=== PATIENT | female | born 2000 | race Caucasian/White ===

== ENCOUNTER 2018-08-04 22:01 | Emergency (ER) | payer OTHER ==
[~2018-08-04] VITALS: Ht 160 cm; Wt 77.6 kg
[2018-08-04] MEDS ORDERED: ONDANSETRON HCL/PF 4 MG/2 ML VIAL ONE (22:41)
[2018-08-04] MEDS: IV NS 0.9% 1,000 ML BAG IV ONE (22:49)
[2018-08-04] MEDS: ONDANSETRON HCL/PF 4 MG/2 ML VIAL IVP ONE (22:49)
[2018-08-04] MEDS ORDERED: DICYCLOMINE HCL INJ 20 MG/2 ML AMPUL IM ONE (22:50)
[2018-08-04] MEDS: DICYCLOMINE HCL INJ 20 MG/2 ML AMPUL IM ONE (22:53)
[2018-08-04 22:59] LABS: APPEARANCE,URINE SL CLOUDY (CLEAR); BILIRUBIN,URINE NEGATIVE (NEGATIVE); BLOOD, URINE 1+ Ery/uL (NEGATIVE); COLOR,URINE YELLOW (YELLOW); KETONES,URINE NEGATIVE (NEGATIVE); LEUKOCYTE ESTERASE ,URINE NEGATIVE (NEGATIVE); NITRITE, URINE NEGATIVE (NEGATIVE); PH,URINE 7.5 (5.0-8.0); PROTEIN,URINE NEGATIVE (NEGATIVE); UGLUCOSE NEGATIVE (NEGATIVE)
--- NOTE | 2018-08-04 23:05 | NUR ---
BILATERAL UPPER ABD CRAMPING W/ +N/V,-D X 1 WEEK. CURRENTLY MENSTRUATING. TAKING MADHAV SELTZER W/ NO RELIEF. PT IS AAOX4. SKIN WNL. NO S/S OF ACUTE DISTRESS NOTED. RR EVEN AND UNLABORED. PT PLACED ON MONITOR AND POX. MD BEDSIDE FOR EVAL. WILL CONTINUE TO MONITOR PT. WARM BLANKETS PROVIDED TO PT
[2018-08-04 23:10] LABS: BASOPHILS % (AUTO) 0.3 % (0.0-2.0); CALCIUM, SERUM 8.8 mg/dL (8.5-10.1); CREATININE 0.8 mg/dL (0.6-1.3); EOSINOPHILS % (AUTO) 3.8 % (0.0-6.0); HEMATOCRIT 40 % (33-45); HEMOGLOBIN 13.1 g/dL (11.5-14.8); LYMPHOCYTES # (AUTO) 2.6 /CMM (0.8-4.8); LYMPHOCYTES % (AUTO) 25.3 % (20.0-44.0); MEAN CORPUSCULAR HGB CONC 33 g/dl (31.0-36.0); MEAN CORPUSCULAR VOLUME 89 fL (82-100); MONOCYTES # (AUTO) 0.8 /CMM (0.1-1.30); MONOCYTES % (AUTO) 8.1 % (2.0-12.0); NEUTROPHILS # (AUTO) 6.3 /CMM (1.8-8.9); NEUTROPHILS % (AUTO) 62.5 % (43.0-81.0); PLATELET COUNT (AUTO) 417 /CMM (150-450); RDW COEFFICIENT OF VARIATION 13.5 (11.5-15.0); RED BLOOD CELL COUNT(AUTO) 4.44 MIL/uL (4.0-5.2); WHITE BLOOD COUNT (AUTO) 10.1 K/uL (4.3-11.0)
[2018-08-04 23:20] LABS: ALBUMIN 3.5 g/dL (3.4-5.0); BILIRUBIN,DIRECT 0.1 mg/dL (0.0-0.2); BILIRUBIN,TOTAL 0.4 mg/dL (0.2-1.0); TOTAL PROTEIN, SERUM 7.4 g/dL (6.4-8.2)
[2018-08-04 23:25] LABS: BACTERIA,URINE None seen /HPF (None Seen); SQUAMOUS EPITHELIAL CELL,UR Few /HPF (None Seen); WBC,URINE 0-2 /HPF (0-3)
--- NOTE | 2018-08-04 23:41 | NUR ---
Patient discharged to home in stable condition. Written and verbal after care instructions given. Patient verbalizes understanding of instruction.IV removed. Catheter intact and site benign. Pressure and 4x4 applied to site. No bleeding noted. PT AMBULATED WITH STEADY GAIT NOTED. NO S/S OF DISTRESS NOTED UPON DISCHARGE
[2018-08-04 23:42] VITALS: BP 118/70
== END 2018-08-04 23:44 | disposition home or self-care (01) ==
LOC: ER 22:13
DX: A08.4 Viral intestinal infection, unspecified (principal); R11.2 Nausea with vomiting, unspecified; R19.7 Diarrhea, unspecified
CPT/HCPCS: 36415; 80048-TC; 80076-TC; 81000-TC; 83690-TC; 85025-TC; A4606; J0500; J2405; J7030; Z7610

== ENCOUNTER 2019-02-22 20:36 | Emergency (ER) | payer OTHER ==
[~2019-02-22] VITALS: Ht 162.6 cm; Wt 78.5 kg
--- NOTE | 2019-02-22 20:44 | NUR ---
BIB SELF FROM HOME. AAOX4. NAD. NO SOB, BREATHING EVEN AND UNLABORED. AMBULATORY. C/O HEADACHE, DIZZYNESS AND STATES "EVERYTHING IS MOVING FAST" AND BLOATING X3 WEEKS. NO N/V REPORTED. AWAITING MD FOR EVAL.
--- NOTE | 2019-02-22 20:44 | NUR ---
Note williams in EDM - 02/22/19 at 2055 by REID BIB SELF FROM HOME. AAOX4. NAD. NO SOB, BREATHING EVEN AND UNLABORED. AMBULATORY. C/O HEADACHE, DIZZYNESS AND STATES "EVERYTHING IS MOVING FAST". AWAITING MD FOR MARCEL.
--- NOTE | 2019-02-22 21:14 | NUR ---
URINE SPECIMEN COLLECTED. SENT TO LAB
--- NOTE | 2019-02-22 21:18 | NUR ---
LAB AT BEDSIDE
[2019-02-22 21:25] LABS: APPEARANCE,URINE Slightly Cloudy (CLEAR); BILIRUBIN,URINE Negative (NEGATIVE); BLOOD, URINE Moderate Ery/uL (NEGATIVE); COLOR,URINE Yellow (YELLOW); KETONES,URINE Trace (NEGATIVE); LEUKOCYTE ESTERASE ,URINE Negative (NEGATIVE); NITRITE, URINE Negative (NEGATIVE); PROTEIN,URINE Negative (NEGATIVE); UGLUCOSE Negative (NEGATIVE); UROBILINOGEN,URINE 0.2 EU/dL (0.2)
[2019-02-22 21:28] LABS: BASOPHILS % (AUTO) 0.6 % (0.0-2.0); EOSINOPHILS % (AUTO) 5.5 % (0.0-6.0); HEMATOCRIT 39 % (33-45); HEMOGLOBIN 13.2 g/dL (11.5-14.8); LYMPHOCYTES # (AUTO) 2.4 /CMM (0.8-4.8); LYMPHOCYTES % (AUTO) 31.2 % (20.0-44.0); MEAN CORPUSCULAR HGB CONC 34 g/dl (31.0-36.0); MEAN CORPUSCULAR VOLUME 90 fL (82-100); MONOCYTES # (AUTO) 0.7 /CMM (0.1-1.30); MONOCYTES % (AUTO) 9.3 % (2.0-12.0); NEUTROPHILS # (AUTO) 4.2 /CMM (1.8-8.9); NEUTROPHILS % (AUTO) 53.4 % (43.0-81.0); PLATELET COUNT (AUTO) 345 /CMM (150-450); RED BLOOD CELL COUNT(AUTO) 4.33 MIL/uL (4.0-5.2); WHITE BLOOD COUNT (AUTO) 7.9 K/uL (4.3-11.0)
[2019-02-22 21:36] LABS: BACTERIA,URINE Moderate /HPF (None Seen); SQUAMOUS EPITHELIAL CELL,UR Moderate /HPF (None Seen)
[2019-02-22 21:37] LABS: CALCIUM, SERUM 8.9 mg/dL (8.5-10.1); CREATININE 0.9 mg/dL (0.6-1.3); POTASSIUM 4.1 mmol/L (3.5-5.1)
[2019-02-22 21:37] LABS: WBC,URINE 0-2 /HPF (0-3)
[2019-02-22 21:51] LABS: ALBUMIN 3.8 g/dL (3.4-5.0); BILIRUBIN,DIRECT 0.1 mg/dL (0.0-0.2); BILIRUBIN,TOTAL 0.3 mg/dL (0.2-1.0); TOTAL PROTEIN, SERUM 7.3 g/dL (6.4-8.2)
--- NOTE | 2019-02-22 22:07 | NUR ---
US AT BEDSIDE
--- NOTE | 2019-02-22 22:08 | NUR ---
PT REFUSED THE TRANS VAGINAL US. DEMARCO, US TECH, IS SPEAKING TO CHANDANA JIMENEZ RE: PT'S REFUSAL.
[2019-02-22 22:25] VITALS: BP 97/66
--- NOTE | 2019-02-22 22:29 | NUR ---
Patient discharged to home in stable condition. Written and verbal after care instructions given. Patient verbalizes understanding of instruction AND RX. PT AMBULATED OUT WITH A STEADY GAIT. VSS. PT'S FRIEND IS DRIVING THE PT HOME.
== END 2019-02-22 22:23 | disposition home or self-care (01) ==
LOC: ER 20:38
DX: R10.30 Lower abdominal pain, unspecified (principal); F41.9 Anxiety disorder, unspecified
CPT/HCPCS: 36415; 76856-TC; 80048-TC; 80076-TC; 81000-TC; 84702-TC; 84703-TC; 85025-TC; 85730-TC; 87086-TC

== ENCOUNTER 2019-03-22 22:39 | Emergency (ER) | payer OTHER ==
[~2019-03-22] VITALS: Ht 160 cm; Wt 77.1 kg
[2019-03-22 22:50] VITALS: BP 101/67
== END 2019-03-23 01:09 | disposition home or self-care (01) ==
LOC: ER 22:45
DX: H61.22 Impacted cerumen, left ear (principal); S00.412A Abrasion of left ear, initial encounter; K12.0 Recurrent oral aphthae; J02.9 Acute pharyngitis, unspecified; X58.XXXA Exposure to other specified factors, initial encounter; Y93.89 Activity, other specified; Y92.89 Other specified places as the place of occurrence of the external cause; Y99.8 Other external cause status
CPT/HCPCS: 84703-TC

== ENCOUNTER 2019-04-20 23:10 | Emergency (ER) | payer OTHER ==
[~2019-04-20] VITALS: Ht 160 cm; Wt 78.0 kg
[2019-04-21 00:23] LABS: BASOPHILS % (AUTO) 0.4 % (0.0-2.0); EOSINOPHILS % (AUTO) 3.7 % (0.0-6.0); HEMATOCRIT 40 % (33-45); HEMOGLOBIN 13.5 g/dL (11.5-14.8); LYMPHOCYTES # (AUTO) 2.6 /CMM (0.8-4.8); LYMPHOCYTES % (AUTO) 29.6 % (20.0-44.0); MEAN CORPUSCULAR HGB CONC 34 g/dl (31.0-36.0); MEAN CORPUSCULAR VOLUME 90 fL (82-100); MONOCYTES # (AUTO) 0.6 /CMM (0.1-1.30); MONOCYTES % (AUTO) 7.1 % (2.0-12.0); NEUTROPHILS # (AUTO) 5.3 /CMM (1.8-8.9); NEUTROPHILS % (AUTO) 59.2 % (43.0-81.0); PLATELET COUNT (AUTO) 321 /CMM (150-450); RED BLOOD CELL COUNT(AUTO) 4.43 MIL/uL (4.0-5.2); WHITE BLOOD COUNT (AUTO) 8.9 K/uL (4.3-11.0)
[2019-04-21 00:32] LABS: CALCIUM, SERUM 8.7 mg/dL (8.5-10.1); CREATININE 0.7 mg/dL (0.6-1.3); POTASSIUM 4.1 mmol/L (3.5-5.1)
[2019-04-21 00:33] LABS: LIPASE 112 U/L (73-393)
[2019-04-21 00:38] LABS: CHOLESTEROL 164 mg/dL (<200); HDL CHOLESTEROL 46 mg/dL (40-60); LDL 101 mg/dL (0-99); TRIGLYCERIDES 131 mg/dL (30-150)
[2019-04-21 00:43] LABS: ALBUMIN 3.6 g/dL (3.4-5.0); BILIRUBIN,TOTAL 0.3 mg/dL (0.2-1.0); TOTAL PROTEIN, SERUM 7.1 g/dL (6.4-8.2)
[2019-04-21 01:05] VITALS: BP 111/68
== END 2019-04-21 01:08 | disposition home or self-care (01) ==
LOC: ER 23:10
DX: R19.7 Diarrhea, unspecified (principal); R11.0 Nausea; N91.1 Secondary amenorrhea; R10.30 Lower abdominal pain, unspecified
CPT/HCPCS: 36415; 80048-TC; 80061-TC; 80076-TC; 83690-TC; 84702-TC; 84703-TC; 85025-TC; 85730-TC

== ENCOUNTER 2019-06-03 04:08 | Emergency (ER) | payer OTHER ==
[~2019-06-03] VITALS: Ht 160 cm; Wt 78.0 kg
--- NOTE | 2019-06-03 06:05 | NUR ---
presented to the ER for c/o abd pain and nausea x 10 days. pt was placed on a monitor . vss . will cont to monitor ,
[2019-06-03] MEDS ORDERED: ACETAMINOPHEN 325 MG TABLET ONE (06:25)
[2019-06-03] MEDS ORDERED: ONDANSETRON 4 MG TAB.RAPDIS ONE (06:26)
[2019-06-03] MEDS ORDERED: ONDANSETRON 4 MG TAB.RAPDIS PO ONE (06:30)
[2019-06-03] MEDS ORDERED: ACETAMINOPHEN 325 MG TABLET PO ONE (06:30)
[2019-06-03 07:02] LABS: APPEARANCE,URINE SL CLOUDY (CLEAR); BILIRUBIN,URINE NEGATIVE (NEGATIVE); BLOOD, URINE 2+ Ery/uL (NEGATIVE); COLOR,URINE DARK YELLO (YELLOW); KETONES,URINE NEGATIVE (NEGATIVE); LEUKOCYTE ESTERASE ,URINE NEGATIVE (NEGATIVE); NITRITE, URINE NEGATIVE (NEGATIVE); PROTEIN,URINE NEGATIVE (NEGATIVE); UGLUCOSE NEGATIVE (NEGATIVE); UROBILINOGEN,URINE 0.2 EU/dL (0.2)
--- NOTE | 2019-06-03 07:26 | NUR ---
PT ASSESSED ON BED, AAOX4, NOT IN RESPIRATORY DISTRESS, V/S STABLE, AWAITING UA RESULT. WILL CONTINUE TO MONITOR.
[2019-06-03 07:28] LABS: BACTERIA,URINE None seen /HPF (None Seen); SQUAMOUS EPITHELIAL CELL,UR Many /HPF (None Seen)
[2019-06-03 07:29] LABS: MUCUS,URINE Few /LPF (None Seen)
--- NOTE | 2019-06-03 07:53 | NUR ---
Patient discharged to home in stable condition. Written and verbal after care instructions given. Patient verbalizes understanding of instruction.
[2019-06-03 07:54] VITALS: BP 108/62
== END 2019-06-03 07:56 | disposition home or self-care (01) ==
LOC: ER 04:14
DX: N39.0 Urinary tract infection, site not specified (principal)
CPT/HCPCS: 81001; 84703; 87086; 99283; Q0162; 81000-TC

== ENCOUNTER → 2021-01-06 | Emergency (ER) | payer OTHER ==
[~2021-01-06] VITALS: Ht 162.6 cm; Wt 85.3 kg
[~2021-01-06] MED LIST: IBUP-1953 PO; IV NS 0.9% 1,000 ML BAG IV ONE; IV NS 0.9% 250 ML BAG IV ONE; METOCLOPRAMIDE HCL 10 MG/2 ML VIAL IV ONE; METOCLOPRAMIDE HCL 10 MG/2 ML VIAL ONE; diphenhydrAMINE HCL 50 MG/ML VIAL IV ONE; diphenhydrAMINE HCL 50 MG/ML VIAL ONE; diphenhydrAMINE HCL ELIX 25 MG/10 ML UDC ONE
--- NOTE | 2021-01-06 17:55 | NUR ---
THE PATIENT IS ALERT AND ORIENTED X4. DENIES PAIN. IN ROOM AIR AND DENEIS SOB. RESPIRATION REGULAR AND UNLABORED. C/O BLACKWOOD WITH METALLIC TASTE & SMELL X 1 WK. COVID + 10/19/20. THE PATIENT PROVIDED WITHA BLANKET FOR COMOFORT. WILL CONTINUE TO MONITOR.
[2021-01-06 18:31] LABS: BASOPHILS % (AUTO) 0.4 % (0.0-2.0); EOSINOPHILS % (AUTO) 2.1 % (0.0-6.0); HEMATOCRIT 43 % (33-45); HEMOGLOBIN 14.5 g/dL (11.5-14.8); LYMPHOCYTES # (AUTO) 2.3 /CMM (0.8-4.8); LYMPHOCYTES % (AUTO) 27.2 % (20.0-44.0); MEAN CORPUSCULAR HGB CONC 34 g/dl (31.0-36.0); MEAN CORPUSCULAR VOLUME 91 fL (82-100); MONOCYTES # (AUTO) 0.7 /CMM (0.1-1.30); MONOCYTES % (AUTO) 8.1 % (2.0-12.0); NEUTROPHILS # (AUTO) 5.2 /CMM (1.8-8.9); NEUTROPHILS % (AUTO) 62.2 % (43.0-81.0); PLATELET COUNT (AUTO) 422 /CMM (150-450); RED BLOOD CELL COUNT(AUTO) 4.76 MIL/uL (4.0-5.2); WHITE BLOOD COUNT (AUTO) 8.4 K/uL (4.3-11.0)
[2021-01-06 18:40] LABS: CALCIUM, SERUM 9.1 mg/dL (8.5-10.1); CREATININE 0.8 mg/dL (0.6-1.3); POTASSIUM 3.9 mmol/L (3.5-5.1)
[2021-01-06 18:46] LABS: BILIRUBIN,DIRECT 0.1 mg/dL (0.0-0.2); BILIRUBIN,TOTAL 0.2 mg/dL (0.2-1.0); TOTAL PROTEIN, SERUM 7.7 g/dL (6.4-8.2)
--- NOTE | 2021-01-06 19:08 | NUR ---
URINE COLLECTED AND SENT IT TO THE LAB.
[2021-01-06 19:31] LABS: BILIRUBIN,URINE NEGATIVE (NEGATIVE); COLOR,URINE YELLOW (YELLOW); LEUKOCYTE ESTERASE ,URINE TRACE (NEGATIVE); NITRITE, URINE NEGATIVE (NEGATIVE); PH,URINE 5.5 (5.0-8.0); PROTEIN,URINE NEGATIVE (NEGATIVE); UGLUCOSE NEGATIVE (NEGATIVE); UROBILINOGEN,URINE 0.2 EU/dL (0.2)
[2021-01-06 19:45] LABS: BACTERIA,URINE 1+ /HPF (None Seen)
[2021-01-06 20:23] VITALS: BP 112/72
--- NOTE | 2021-01-06 20:24 | NUR ---
Patient discharged to home in stable condition. Written and verbal after care instructions given. Patient verbalizes understanding of instruction. The patient left ER in stable condition.
== END | disposition home or self-care (01) ==
LOC: ER 17:36
DX: G43.109 Migraine with aura, not intractable, without status migrainosus (principal); R43.9 Unspecified disturbances of smell and taste
CPT/HCPCS: 36415; 70450; 80048; 80076; 81001; 84703; 85025; 85730; 96361; 96374; 96375; 99284; J1200; J2765; J7030; J7050; Q0163

== ENCOUNTER 2022-03-08 22:11 | Emergency (ER) | payer OTHER ==
[~2022-03-08] VITALS: Ht 160 cm; Wt 81.6 kg
[~2022-03-08 22:11] MED LIST changes: -IV NS 0.9% 1,000 ML BAG IV ONE; -IV NS 0.9% 250 ML BAG IV ONE; -METOCLOPRAMIDE HCL 10 MG/2 ML VIAL IV ONE; -METOCLOPRAMIDE HCL 10 MG/2 ML VIAL ONE; -diphenhydrAMINE HCL 50 MG/ML VIAL IV ONE; -diphenhydrAMINE HCL 50 MG/ML VIAL ONE; -diphenhydrAMINE HCL ELIX 25 MG/10 ML UDC ONE
--- NOTE | 2022-03-09 00:20 | NUR ---
BIBFAMILY C/O PELVIC PAIN ON AND OFF PAST 3 WEEKS FELT WORSE TODAY . PT A/OX4. TOLERATING R/A WELL WITH NO SOB. PT AMBULATORY WITH STEADY GAIT. CONNECTED PT TO POX AND MONITOR.
[2022-03-09] MEDS ORDERED: ONDANSETRON HCL/PF 4 MG/2 ML VIAL ONE (00:27)
[2022-03-09] MEDS ORDERED: ACETAMINOPHEN ES 500 MG TABLET ONE (00:28)
[2022-03-09] MEDS ORDERED: ACETAMINOPHEN ES 500 MG TABLET PO ONE (00:30)
[2022-03-09] MEDS ORDERED: ONDANSETRON HCL/PF 4 MG/2 ML VIAL IVP ONE (00:30)
--- NOTE | 2022-03-09 00:33 | NUR ---
COTTON HEADER AT PT'S BEDSIDE
[2022-03-09 00:48] LABS: BASOPHILS # (AUTO) 0.1 K/uL (0.0-0.2); BASOPHILS % (AUTO) 0.7 % (0.0-2.0); EOSINOPHILS % (AUTO) 1.5 % (0.0-6.0); HEMATOCRIT 39 % (33-45); HEMOGLOBIN 13.4 g/dL (11.5-14.8); LYMPHOCYTES # (AUTO) 2.1 K/uL (0.8-4.8); LYMPHOCYTES % (AUTO) 22.7 % (20.0-44.0); MEAN CORPUSCULAR HGB CONC 34 g/dl (31.0-36.0); MEAN CORPUSCULAR VOLUME 89 fL (82-100); MONOCYTES # (AUTO) 0.9 K/uL (0.1-1.30); MONOCYTES % (AUTO) 9.2 % (2.0-12.0); NEUTROPHILS # (AUTO) 6.2 K/uL (1.8-8.9); NEUTROPHILS % (AUTO) 65.9 % (43.0-81.0); PLATELET COUNT (AUTO) 358 K/uL (150-450); RED BLOOD CELL COUNT(AUTO) 4.42 MIL/uL (4.0-5.2); WHITE BLOOD COUNT (AUTO) 9.4 K/uL (4.3-11.0)
[2022-03-09 01:03] LABS: CALCIUM, SERUM 9.2 mg/dL (8.5-10.1); CREATININE 0.6 mg/dL (0.6-1.3)
[2022-03-09 01:10] LABS: ALBUMIN 3.7 g/dL (3.4-5.0); BILIRUBIN,DIRECT 0.1 mg/dL (0.0-0.2); BILIRUBIN,TOTAL 0.3 mg/dL (0.2-1.0); TOTAL PROTEIN, SERUM 7.6 g/dL (6.4-8.2)
--- NOTE | 2022-03-09 01:11 | NUR ---
URINE COLLECTED AND SENT TO LAB
[2022-03-09 01:47] LABS: BILIRUBIN,URINE NEGATIVE (NEGATIVE); COLOR,URINE YELLOW (YELLOW); LEUKOCYTE ESTERASE ,URINE TRACE (NEGATIVE); NITRITE, URINE NEGATIVE (NEGATIVE); PH,URINE 6.5 (5.0-8.0); PROTEIN,URINE NEGATIVE (NEGATIVE); UGLUCOSE NEGATIVE (NEGATIVE)
--- NOTE | 2022-03-09 03:48 | NUR ---
FOLLOWED UP WITH [facility] REGARDING ULTRASOUND RESULT. CURRENTLY BEING READ.
--- NOTE | 2022-03-09 04:03 | NUR ---
Patient discharged to home in stable condition. Written and verbal after care instructions given. Patient verbalizes understanding of instruction. IV line removed and PT ambulatory with steady gait.
[2022-03-09 04:12] VITALS: BP 129/65
[2022-03-09 07:00] LABS: BACTERIA,URINE 1+ /HPF (None Seen); CALCIUM OXALATE CRYSTALS,UR Few /HPF (None Seen)
== END 2022-03-09 04:05 | disposition home or self-care (01) ==
LOC: ER 22:17
DX: O20.0 Threatened abortion (principal); Z3A.09 9 weeks gestation of pregnancy; Z79.1 Long term (current) use of non-steroidal anti-inflammatories (NSAID)
CPT/HCPCS: 36415; 76856; 80048; 80076; 81001; 84702; 84703; 85025; 85730; 87086; 96374; 99284; J2405